=== PATIENT | male | born 1950 | race Caucasian/White ===

== ENCOUNTER → 2018-02-05 | Outpatient (CLI) | payer MEDICARE, BC ==
[~2018-02-05] MED LIST: ALPRAZOLAM1 MG PO; ASPIR 8181 MG PO; ATORVASTATIN CA10 MG PO; FLUOXETINE HCL10 M1 PO; IOPAMIDOL 370 MG/ML 200 ML INFUS..BTL INJ ONE; LISINOPRIL10 MG PO; LOVAZA1 GM PO; NABUMETONE500 MG PO; SODIUM CHLORIDE 0.9% 100 ML ONE
[2018-02-05 11:20] LABS: BLOOD UREA NITROGEN 19 mg/dL (7-26); BUN/CREATININE RATIO 25 (6-25); CREATININE, SERUM 0.77 mg/dL (0.72-1.25); EST GLOMERULAR FILTRATION RATE > 60 ML/MIN (60-)
--- NOTE | 2018-02-05 12:37 | Diagnostic Imaging Report ---
EXAM: CTA Chest WITH contrast. DATE: 02/05/2018 10:42 AM INDICATION: COMPARISON: 12/30/2016 CT TECHNIQUE: CT angiogram of the chest was obtained after the administration of IV contrast. Prospective gating was performed. Images reviewed in the axial, coronal, and sagittal planes. 3D reconstructions performed on off-line workstation. Reformatted axial MIP images were obtained and reviewed. IV Contrast: 100 mL Isovue-370. Total DLP: 583 mGy*cm Est. Eff. Dose DLP x 0.015 x size factor mSv (CTDIvol has been reviewed and is below limits set by [facility]). FINDINGS: Lines and Tubes: None. Lower Neck: Visualized thyroid gland unremarkable. Heart and Great Vessels: The pulmonary artery measure 27 mm. No pericardial effusion. No intracardiac filling defect. Mild coronary artery vascular calcifications. Branching pattern of coronary arteries and aorta routine. Aortic Annulus: 34 mm. Sinus of Valsalva: 44 mm. Ascending Aorta at level of PA: 43 mm. Mid Arch: 35 mm. Proximal Descendin mm. Mid Descendin mm. Distal Descendin mm. Other: No dissection. No significant atherosclerotic changes of aorta. Mild calcifications tricuspid aortic valve. Lymph Nodes: No suspicious adenopathy. Lungs: Azygos lobe configuration. Mild biapical scarring. No pneumothorax or pleural effusion. Trachea and central bronchi are unremarkable. Upper abdomen: No acute findings. Bones and Soft Tissues: Moderate degenerative changes spine. IMPRESSION: 1. Mild aneurysmal dilatation aortic root and ascending aorta. Allowing for differences in technique, not significantly changed compared with 12/30/2016. Signed by: Dr. Michele Melgoza MD on 02/05/2018 12:33 PM
== END ==
LOC: CT 10:31
PROVIDERS: ATTEND Internal Medicine
DX: I71.2 Thoracic aortic aneurysm, without rupture (principal)
CPT/HCPCS: 36415; 71275; 82565; 84520; J7050; Q9967

== ENCOUNTER → 2020-06-03 | Day surgery (SDC) | payer MEDICARE, BC, OTHER ==
[2020-05-29 12:20] LABS: BASOPHILS # (AUTO) 0.1 (0.0-0.1); BASOPHILS % 0.7 % (0.0-1.0); EOSINOPHILS # (AUTO) 0.2 (0.0-0.4); EOSINOPHILS % 2.2 % (0.0-6.0); HEMATOCRIT 44.2 % (38.2-49.6); HEMOGLOBIN 14.7 g/dL (14.0-18.0); LYMPHOCYTES % 29.4 % (18.0-39.1); MEAN CORPUSCULAR HEMOGLOBIN 29.1 pg (28-32); MEAN CORPUSCULAR HGB CONC 33.3 g/dL (31-35); MEAN CORPUSCULAR VOLUME 87.5 fL (81-99); MONOCYTES # (AUTO) 0.8 (0.2-0.8); MONOCYTES % 11.1 % (4.4-11.3); NEUTROPHILS # (AUTO) 3.9 (2.1-6.9); NEUTROPHILS % 55.7 % (38.7-80.0); PLATELET COUNT 151 x10e3/uL (140-360); RED BLOOD COUNT 5.05 x10e6/uL (4.3-5.7); RED CELL DISTRIBUTION WIDTH 13.3 % (11.7-14.4)
[~2020-06-03] MED LIST changes: +AMIODARONE HCL200 MG PO; +CENTRUM SILVER1 EAC4 PO; +COQ-10100 MG PO; +ELIQUIS5 MG PO; +FENTANYL CITRATE/PF 100MCG/2 ML INJ ONE; +FLUOXETINE HCL20 MG PO; +GLUCOSAMINE 1,1 EACH PO; +HYDROCHLOROTHIA25 MG PO; +HYOSCYAMINE 0.125 MG TAB ONE; -IOPAMIDOL 370 MG/ML 200 ML INFUS..BTL INJ ONE; +LIDOCAINE HCL 2% LOCAL INJ 5 ML SDV VIAL INJ ONE; +LOSARTAN POTAS100 MG PO; +MAGNESIUM250 MG PO; +METFORMIN HCL500 MG PO; +MIDAZOLAM HCL 2 MG/2 ML VIAL ONE; +RED YEAST RICE600 MG PO; -SODIUM CHLORIDE 0.9% 100 ML ONE; +TURMERIC1 GM PO; +VASCEPA1 GM PO; +VITAMIN B122500 MCG PO; +VITAMIN B6 PO; +VITAMIN C500 M6 PO; +VITAMIN D310 MCG PO; +VITAMIN E1000 UNI1 PO; +ZINC SULFATE220 M1 PO
--- NOTE | 2020-06-03 07:15 | NUR ---
SPIRITUAL CARE - Pre-Surgery Assessment: Pt in bed. Pt's at bedside. Pt reported supportive attention from family and friends. Intervention: Box Blank Machine Feeder provided pastoral presence, hospitality, and sympathetic listening. Acquainted pt with availability of oral therapist while hospitalized. Outcome: Pt expressed appreciation for visit. No need for follow up indicated at this time. [facility] Department O: [phone]
[2020-06-03 10:00] VITALS: BP 163/67
--- NOTE | 2020-06-03 11:29 | Operative Report ---
DATE OF PROCEDURE: 06/03/2020 SURGEON: Ganesh Sutton MD PROCEDURE: Colonoscopy. INDICATIONS FOR COLONOSCOPY: Surveillance colonoscopy, personal history of colon polyps. MEDICATIONS: The patient was done under MAC, please see anesthesiologist's note. PROCEDURE IN DETAIL: With the patient in the left lateral decubitus position, a flexible fiberoptic Olympus colonoscope was inserted into the rectum with ease and advanced all the way to the cecum. Of note, diverticular disease was pretty much noted throughout the colon. It was then withdrawn slowly. Mucosa overlying the cecum appeared to be within normal limits. Mucosa overlying the ascending, transverse, descending, and sigmoid colon other than for diverticular disease, grossly appeared to be within normal limits. The scope was then retroflexed into the distal rectum and small internal hemorrhoids were noted, none of which was actively bleeding. The scope was then straightened out, it was subsequently withdrawn, and the patient tolerated the procedure well. IMPRESSION: 1. Pandiverticulosis. 2. Internal hemorrhoids, none actively bleeding. PLAN: Initiate high-fiber, low-fat diet. Initiate high-fiber supplement. The patient might benefit from a followup colonoscopy in 3 to 5 years. Ganesh Sutton MD [facility] [place] /[id number] cc: Richard Salazar
== END | disposition home or self-care (01) ==
LOC: OR 06:05
PROVIDERS: ATTEND Internal Medicine Gastroenterology
DX: Z09 Encounter for follow-up examination after completed treatment for conditions other than malignant neoplasm (principal); Z86.010 Personal history of colon polyps; K57.30 Diverticulosis of large intestine without perforation or abscess without bleeding; K64.8 Other hemorrhoids; G47.33 Obstructive sleep apnea (adult) (pediatric); I10 Essential (primary) hypertension; I48.91 Unspecified atrial fibrillation; E11.9 Type 2 diabetes mellitus without complications; R00.1 Bradycardia, unspecified; Z01.810 Encounter for preprocedural cardiovascular examination; Z01.812 Encounter for preprocedural laboratory examination; Z11.59 Encounter for screening for other viral diseases; Z79.02 Long term (current) use of antithrombotics/antiplatelets; Z79.84 Long term (current) use of oral hypoglycemic drugs; Z68.33 Body mass index [BMI] 33.0-33.9, adult
CPT/HCPCS: 36415 ×2; 45378; 82948; 85025; 93005; J2001; J2250; J3010; U0002

== ENCOUNTER → 2021-06-18 | Outpatient (CLI) | payer MEDICARE, BC ==
[~2021-06-18] MED LIST changes: -FENTANYL CITRATE/PF 100MCG/2 ML INJ ONE; -HYOSCYAMINE 0.125 MG TAB ONE; +IOPAMIDOL 370 MG/ML 200 ML INFUS..BTL INJ ONE; -LIDOCAINE HCL 2% LOCAL INJ 5 ML SDV VIAL INJ ONE; -MIDAZOLAM HCL 2 MG/2 ML VIAL ONE; +SODIUM CHLORIDE 0.9% 50ML 50 ML ONE
[2021-06-18 13:58] LABS: CREATININE, SERUM 1.04 mg/dL (0.72-1.25)
== END ==
LOC: CT 13:01
PROVIDERS: ATTEND Nurse Practitioner
DX: I71.2 Thoracic aortic aneurysm, without rupture (principal)
CPT/HCPCS: 36415; 71275; 82565; 84520; Q9967